=== PATIENT | female | born 1990 | race American Indian/Alaskan Native ===

== ENCOUNTER 2020-04-07 06:36 | Emergency (ER) | payer MEDICAID ==
[2020-04-07 06:56] VITALS: BP 125/72
--- NOTE | 2020-04-07 07:40 | Event Note ---
ED Screening Note ED Screening Note: l flank pain and vomiting no fever lmp 1-18 no vag dc pmh none psh none rx none This initial assessment/diagnostic orders/clinical plan/treatment(s) is/are subject to change based on patients health status, clinical progression and re- assessment by fellow clinical providers in the ED. Further treatment and workup at subsequent clinical providers discretion. Patient/guardian urged not to elope from the ED as their condition may be serious if not clinically assessed and managed. Initial orders include: ro uti/pylo/ectoptic
[2020-04-07 07:56] LABS: Alanine Aminotransferase 70 units/L (7-56); Albumin 4.1 g/dL (3.9-5); Blood Urea Nitrogen 9 mg/dL (7-17); Calcium 8.4 mg/dL (8.4-10.2); Hemolysis Index 4
[2020-04-07 07:57] LABS: Eosinophils # (Auto) 0.1 K/mm3 (0.0-0.4); Hematocrit 41.1 % (30.3-42.9); Hemoglobin 13.8 gm/dl (10.1-14.3); Lymphocytes # (Auto) 1.5 K/mm3 (1.2-5.4); Lymphocytes % (Auto) 30.1 % (13.4-35.0); Mean Corpuscular HGB Conc 34 % (30-34); Mean Corpuscular Volume 86 fl (79-97); Monocytes # (Auto) 0.3 K/mm3 (0.0-0.8); Monocytes % (Auto) 5.5 % (0.0-7.3); Platelet Count 223 K/mm3 (140-440); Red Blood Count 4.76 M/mm3 (3.65-5.03); Red Cell Distribution Width 12.3 % (13.2-15.2)
[2020-04-07 07:59] LABS: Basophils % (Auto) 0.6 % (0.0-1.8)
[2020-04-07 08:00] LABS: BUN/Creatinine Ratio 13
[2020-04-07 08:04] LABS: Bacteria,Urine 1+ /HPF (Negative); Bilirubin,Urine NEG (Negative); Blood,Urine LG (Negative); Color,Urine Yellow (Yellow); Mucus,Urine 3+ /HPF; RBC,Urine > 182.0 /HPF (0.0-6.0); Urobilinogen,Urine < 2.0 mg/dL (<2.0)
--- NOTE | 2020-04-07 08:13 | Emergency Department Report ---
ED Abdominal Pain HPI - General Chief Complaint: Abdominal Pain Stated Complaint: LEFT FLANK PAIN PUI?: No Time Seen by Provider: 04/07/20 07:40 Source: patient, EMS Mode of arrival: Ambulatory Limitations: No Limitations - History of Present Illness Initial Comments: 29 yo comes to ER co l flank pain. vomit x 1. no dysuria. LMP 1/8. 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 denies: diarrhea, fever, chills, constipation, dysuria, hematemesis, hematochezia, melena, hematuria, anorexia, syncope - Related Data Previous Rx's Medication Instructions Recorded Last Taken Type Ibuprofen [Motrin] 800 mg PO Q8HR PRN #30 tablet 04/07/20 Unknown Rx Ondansetron [Zofran Odt] 4 mg PO Q8HR PRN #10 tab.rapdis 04/07/20 Unknown Rx Sulfamethoxazole/Trimethoprim 1 each PO BID #10 tablet 04/07/20 Unknown Rx [Bactrim DS TAB] Allergies Allergy/AdvReac Type Severity Reaction Status Date / Time No Known Allergies Allergy Verified 04/07/20 06:54 ED Review of Systems ROS: Stated complaint: LEFT FLANK PAIN Other details as noted in HPI Comment: All other systems reviewed and negative ED Past Medical Hx - Past Medical History Previous Medical History?: No - Surgical History Past Surgical History?: No - Family History Family history: no significant - Social History Smoking Status: Never Smoker Substance Use Type: None - Medications Home Medications: Home Medications Medication Instructions Recorded Confirmed Last Taken Type Ibuprofen [Motrin] 800 mg PO Q8HR PRN #30 tablet 04/07/20 Unknown Rx Ondansetron [Zofran Odt] 4 mg PO Q8HR PRN #10 tab.rapdis 04/07/20 Unknown Rx Sulfamethoxazole/Trimethoprim 1 each PO BID #10 tablet 04/07/20 Unknown Rx [Bactrim DS TAB] ED Physical Exam - General Limitations: No Limitations General appearance: alert, in no apparent distress - Head Head exam: Present: atraumatic, normocephalic - Eye Eye exam: Present: normal appearance - ENT ENT exam: Present: mucous membranes moist - Neck Neck exam: Present: normal inspection - Respiratory Respiratory exam: Present: normal lung sounds bilaterally. Absent: respiratory distress - Cardiovascular Cardiovascular Exam: Present: regular rate, normal rhythm. Absent: systolic murmur, diastolic murmur, rubs, gallop - GI/Abdominal GI/Abdominal exam: Present: soft, normal bowel sounds - Extremities Exam Extremities exam: Present: normal inspection - Back Exam Back exam: Present: normal inspection - Neurological Exam Neurological exam: Present: alert, oriented X3 - Psychiatric Psychiatric exam: Present: normal affect, normal mood - Skin Skin exam: Present: warm, dry, intact, normal color. Absent: rash ED Course Vital Signs 04/07/20 06:48 Temperature 97.5 F L Pulse Rate 72 Respiratory 16 Rate Blood Pressure 125/72 O2 Sat by Pulse 100 Oximetry ED Medical Decision Making - Lab Data Result diagrams: 04/07/20 07:19 04/07/20 07:19 - Radiology Data Radiology results: report reviewed, image reviewed k stone - Medical Decision Making Labs 04/07/20 04/07/20 04/07/20 07:19 07:19 07:19 WBC 4.9 RBC 4.76 Hgb 13.8 Hct 41.1 MCV 86 MCH 29 MCHC 34 RDW 12.3 L Plt Count 223 Lymph % (Auto) 30.1 [place] % (Auto) 5.5 Eos % (Auto) 1.0 Baso % (Auto) 0.6 Lymph # (Auto) 1.5 [place] # (Auto) 0.3 Eos # (Auto) 0.1 Baso # (Auto) 0.0 Seg Neutrophils % 62.8 Seg Neutrophils # 3.1 Sodium 141 Potassium 3.8 Chloride 106.5 Carbon Dioxide 28 Anion Gap 10 BUN 9 Creatinine 0.7 Estimated GFR > 60 BUN/Creatinine Ratio 13 Glucose 85 Calcium 8.4 Total Bilirubin 0.20 AST 40 ALT 70 H Alkaline Phosphatase 53 Total Protein 6.1 L Albumin 4.1 Albumin/Globulin Ratio 2.1 Lipase 48 HCG, Qual Negative Urine Color Urine Turbidity Urine pH Ur Specific [place] Urine Protein Urine Glucose (UA) Urine Ketones Urine Blood Urine Nitrite Urine Bilirubin Urine Urobilinogen Ur Leukocyte Esterase Urine WBC (Auto) Urine RBC (Auto) U Epithel Cells (Auto) Urine Bacteria (Auto) Urine Mucus Urine Yeast (Budding) 04/07/20 07:27 WBC RBC Hgb Hct MCV MCH MCHC RDW Plt Count Lymph % (Auto) [place] % (Auto) Eos % (Auto) Baso % (Auto) Lymph # (Auto) [place] # (Auto) Eos # (Auto) Baso # (Auto) Seg Neutrophils % Seg Neutrophils # Sodium Potassium Chloride Carbon Dioxide Anion Gap BUN Creatinine Estimated GFR BUN/Creatinine Ratio Glucose Calcium Total Bilirubin AST ALT Alkaline Phosphatase Total Protein Albumin Albumin/Globulin Ratio Lipase HCG, Qual Urine Color Yellow Urine Turbidity Slightly-cloudy Urine pH 5.0 Ur Specific [place] 1.021 Urine Protein 100 mg/dl Urine Glucose (UA) Neg Urine Ketones Neg Urine Blood Lg Urine Nitrite Neg Urine Bilirubin Neg Urine Urobilinogen < 2.0 Ur Leukocyte Esterase Neg Urine WBC (Auto) 2.0 Urine RBC (Auto) > 182.0 U Epithel Cells (Auto) 2.0 Urine Bacteria (Auto) 1+ Urine Mucus 3+ Urine Yeast (Budding) 3+ Vital Signs 04/07/20 06:48 Temperature 97.5 F L Pulse Rate 72 Respiratory 16 Rate Blood Pressure 125/72 O2 Sat by Pulse 100 Oximetry labs noted ua noted preg neg dc home with dc poc including pcp follow up and rx. she has no cva tenderness. no fever. abd snt. preg neg. treat for cystitis and will dc home with follow up pt added on dc that she had pos covid 5 days ago- no sob. no fever. no chills. - Differential Diagnosis ro preg; ro uti; k stone Critical care attestation.: If time is entered above; I have spent that time in minutes in the direct care of this critically ill patient, excluding procedure time. ED Disposition Clinical Impression: Kidney stone, Hematuria Disposition: DC- TO HOME OR SELFCARE Is pt being admited?: No Does the pt Need Aspirin: No Condition: Stable Instructions: Kidney Stones, [id number], Abdominal Pain (ED) Additional Instructions: stay well hydrated with water tylenol may help with pain meds as ordered today follow up with kidney doctor to make sure these stones pass referral below also referral below to pcp Prescriptions: Sulfamethoxazole/Trimethoprim [Bactrim DS TAB] 1 each PO BID #10 tablet Ibuprofen [Motrin] 800 mg PO Q8HR PRN #30 tablet PRN Reason: Pain, Moderate (4-6) Ondansetron [Zofran Odt] 4 mg PO Q8HR PRN #10 tab.rapdis PRN Reason: Vomiting Referrals: THERESA RIVERA MD [Staff Physician] - 3-5 Days SHIRAZ LOMAX MD [Staff Physician] - 3-5 Days Time of Disposition: 08:58
--- NOTE | 2020-04-07 08:57 | Cat Scan Report ---
CT ABDOMEN AND PELVIS WITHOUT CONTRAST INDICATION / CLINICAL INFORMATION: flank pain. TECHNIQUE: Axial CT images were obtained through the abdomen and pelvis without IV contrast. All CT scans at [facility] location are performed using CT dose reduction for ALARA by means of automated exposure control. COMPARISON: None available. FINDINGS: LOWER CHEST: No significant abnormality. HEPATOBILIARY: No significant abnormality. PANCREAS/SPLEEN/ADRENALS: No significant abnormality. GENITOURINARY: 3 mm nonobstructing nephrolith in the right kidney. No obstructive uropathy. 6 mm calc ific density in the left pelvis likely represents a phlebolith. Bladder and ureters demonstrates no s ignificant abnormality. GASTROINTESTINAL/MESENTERY: No significant abnormality. RETROPERITONEUM: No significant adenopathy. REPRODUCTIVE ORGANS: Small ovarian follicles/cysts measuring less than 2 cm. VASCULAR: No significant abnormality. BODY WALL: No significant abnormality. SKELETAL SYSTEM: No significant abnormality. IMPRESSION: 1. Punctate nonobstructing nephrolith on the right. No acute abdominopelvic abnormality. 2. Additional findings as above. Signer Name: Dinesh Bull MD Signed: 04/07/2020 8:52 AM Workstation Name: [id number]
== END 2020-04-07 09:07 | disposition home or self-care (01) ==
LOC: ED 06:36
DX: N20.0 Calculus of kidney (principal); R31.9 Hematuria, unspecified; Z79.899 Other long term (current) drug therapy
CPT/HCPCS: 36415; 74176; 80053; 81001; 83690; 84703; 85025

== ENCOUNTER 2021-12-07 15:42 | Emergency (ER) | payer MEDICAID, OTHER | END 2021-12-07 18:14 | disposition left against medical advice (07) | LOC: ED 15:42 | DX: S69.91XA Unspecified injury of right wrist, hand and finger(s), initial encounter (principal); Z53.21 Procedure and treatment not carried out due to patient leaving prior to being seen by health care provider; X58.XXXA Exposure to other specified factors, initial encounter; Y93.89 Activity, other specified; Y92.488 Other paved roadways as the place of occurrence of the external cause; Y99.8 Other external cause status ==